=== PATIENT | male | born 1975 | race Caucasian/White ===

== ENCOUNTER 2019-06-14 16:36 | Observation (INO) | payer OTHER, SELFPAY ==
[2019-06-14] VITALS (66 sets, daily range): BP systolic 127–147; BP diastolic 64–94; PULSE 54–79; RESP 8–20; TEMP 36.4–37; O2SAT 91–99
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
[2019-06-14 17:05] LABS: Abs Immature Grans 0.01 k/cumm (0.0-0.09); Absolute Basophil Count 0.04 k/cumm (0.0-0.2); Absolute Eosinophil Count 0.11 k/cumm (0.0-0.7); Absolute Lymphocyte Count 2.36 k/cumm (1.2-3.4); Absolute Monocyte Count 0.48 k/cumm (0.11-0.7); Absolute Neutrophil Count 4.92 k/cumm (1.2-6.7); Basophils % 0.5; Eosinophils % 1.4; HCT 46.4 % (40.0-50.0); HGB 15.6 g/dL (13.5-17.5); Immature Grans % 0.1; Lymphocytes % 29.8; Mean Corp. HGB Concentration 33.6 g/dL (32.0-36.0); Mean Corpuscular Hemoglobin 29.9 pg (27.0-33.0); Mean Corpuscular Volume 89.1 fL (80-95); Monocytes % 6.1; Neutrophils % 62.1; Platelet Count 251 x1000/uL (130-400); RBC 5.21 m/cumm (4.50-6.00); RBC Distribution Width 12.4 % (11.8-14.1); White Blood Cell Count 7.92 k/cumm (4.4-10.8)
[2019-06-14 17:17] LABS: ALT 41 U/L (16-63); AST 29 U/L (15-37); Albumin 4.5 g/dL (3.4-5.0); Alkaline Phosphatase 75 U/L (46-116); BUN 26 mg/dL (7-18); Bilirubin, Total 0.9 mg/dL (0.2-1.0); CREATININE 1.18 mg/dL (0.70-1.30); Calcium 9.4 mg/dL (8.5-10.1); Chloride 102 mmol/L (98-107); Glucose 85 mg/dL (70-100); INR 1.1 (0.9-1.1); PTT Activated 22.9 sec (21.0-31.4); Potassium 3.9 mmol/L (3.5-5.1); Sodium 136 mmol/L (136-145); Total Protein 7.9 g/dL (6.4-8.2)
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
[2019-06-14] MEDS: Normal Saline 1,000 ML 1000 ML IV (18:52)
[2019-06-14] MEDS: Acetaminophen 325 MG TAB 650 MG PO ×2 (19:05→23:19)
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
[2019-06-15 01:30] VITALS: BP 119/68; PULSE 60; RESP 15; TEMP 36.3; O2SAT 98
[2019-06-15 03:35] VITALS: BP 115/69; PULSE 51; RESP 16; TEMP 37.1; O2SAT 97
[2019-06-15 07:40] VITALS: BP 147/92; PULSE 56; RESP 18; TEMP 36.3; O2SAT 97
[2019-06-15] MEDS: Acetaminophen 325 MG TAB 650 MG PO (08:09)
[2019-06-15 11:07] VITALS: O2SAT 97
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
== END 2019-06-15 12:10 | disposition home or self-care (01) ==
LOC: ER 21:57 → MS 22:50
PROVIDERS: Admitting Provider General Practice; Emergency Provider Physician Assistant; Visit Provider Internal Medicine
DX: S06.0X9A Concussion with loss of consciousness of unspecified duration, initial encounter (principal); V19.3XXA Pedal cyclist (driver) (passenger) injured in unspecified nontraffic accident, initial encounter; Y93.55 Activity, bike riding
CPT/HCPCS: 36415; 80053; 86850; 86900; 86901; 96360; 96361; 99222; 99239; 99285; 70450; 72125; 85025; 85610; 85730; 99217; 99219; 99284; G0378; L0172

== ENCOUNTER 2020-02-29 20:40 | Emergency (ER) | payer OTHER, SELFPAY ==
[2020-02-29 20:44] VITALS: BP 150/104; PULSE 67; RESP 18; TEMP 36.7; O2SAT 100
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
[2020-02-29] MEDS: Acetaminophen 500 MG TAB 1000 MG PO (21:05)
--- NOTE | 2020-02-29 22:12 | DI.VRAD_ITS ---
PROCEDURE INFORMATION: Exam: CT Cervical Spine Without Contrast Exam date and time: 02/29/2020 9:29 PM Age: 44 years old Clinical indication: Injury or trauma; Fall; Initial encounter; Abrasion TECHNIQUE: Imaging protocol: Computed tomography images of the cervical spine without contrast. COMPARISON: No relevant prior studies available. FINDINGS: Vertebrae: No acute cervical fracture or malalignment is seen. C2-C3: No significant cervical stenosis or left-sided foraminal narrowing. Mild right-sided foraminal narrowing. C3-C4: Disc height preserved. No significant cervical stenosis. Mild bilateral foraminal narrowing. C4-C5: Mild central canal narrowing. Mild right and mild-moderate left sided foraminal narrowing. C5-C6: Mild posterior osteophytic ridging. Mild-moderate central canal narrowing with deformity of the thecal sac. Moderate bilateral foraminal narrowing. C6-C7: No significant cervical stenosis. No significant right-sided foraminal narrowing. Mild left-sided foraminal narrowing. C7-T1: No significant cervical stenosis or foraminal narrowing. Soft tissues: Within the limits of the exam, no gross soft tissue fluid collection is seen in the neck. Sinuses: Focal soft tissue density material in the right maxillary sinus has an appearance suggesting retained mucus, a mucous retention cyst, or an inflammatory polyp. Mastoid air cells: The mastoid air cells appear well-aerated. Auditory system: The middle ear cavities appear clear. Thyroid: The thyroid gland appears normal in size. Lungs: The lung apices appear clear. IMPRESSION: No acute cervical fracture or malalignment is seen. Dictated and Authenticated by: Ian Ospina MD. Ordering:MEGAN Crane MD
[2020-02-29 22:32] VITALS: BP 147/90; PULSE 54; RESP 16; O2SAT 99
== END 2020-02-29 22:30 | disposition home or self-care (01) ==
PROVIDERS: Emergency Provider Emergency Medicine
DX: S09.90XA Unspecified injury of head, initial encounter (principal); S16.1XXA Strain of muscle, fascia and tendon at neck level, initial encounter; V18.0XXA Pedal cycle driver injured in noncollision transport accident in nontraffic accident, initial encounter; Y93.55 Activity, bike riding
CPT/HCPCS: 99284; 72125; L0172